=== PATIENT | male | born 1945 | race Two or more races ===

== ENCOUNTER 2024-05-28 19:21 | Inpatient (IN) | payer MEDICARE, OTHER ==
[~2024-05-28] VITALS: Ht 182.9 cm; Wt 79.4 kg
[2024-05-28] MEDS: PENICILLIN G BENZATHINE 2.4 MMU/4 ML DISP.SYRIN IM ONE (21:00)
[2024-05-28] MEDS: IV NORMAL SALINE 1000 ML BAG IV ONE (21:00)
[2024-05-28 21:17] LABS: BASOPHILS % (AUTO) 0.2 % (0.0-2.0); HEMOGLOBIN 13.3 g/dL (12.5-16.3); LYMPHOCYTES # (AUTO) 0.6 K/uL (0.8-4.8); LYMPHOCYTES % (AUTO) 5.1 % (20.5-51.5); MEAN CORPUSCULAR HEMOGLOBIN 30.4 uug (23.8-33.4); MEAN CORPUSCULAR HGB CONC 33 g/dL (32.5-36.3); MEAN CORPUSCULAR VOLUME 91.8 fL (73.0-96.2); MONOCYTES % (AUTO) 7.8 % (0.0-11.0); NEUTROPHILS % (AUTO) 86.9 % (38.5-71.5); PLATELET COUNT (AUTO) 117 K/uL (152-348); RED BLOOD CELL COUNT(AUTO) 4.36 MIL/uL (4.06-5.63); WHITE BLOOD COUNT (AUTO) 12.7 K/uL (3.6-10.2)
[2024-05-28 21:24] LABS: DIFFERENTIAL COMMENT 1
[2024-05-28 21:28] LABS: CALCIUM 9.1 mg/dL (8.5-10.1); CARBON DIOXIDE 26 mmol/L (21-32); CHLORIDE 104 mmol/L (98-107); GLUCOSE 193 mg/dL (74-106); POTASSIUM 4.3 mmol/L (3.5-5.1); SODIUM SERUM 141 mmol/L (136-145); UREA NITROGEN, BLOOD 19 mg/dL (7-18)
[2024-05-28 21:34] LABS: ALANINE AMINOTRANSFERASE 31 U/L (16-63); ALBUMIN 3.8 g/dL (3.4-5.0); ALKALINE PHOSPHATASE 73 U/L (50-136); ASPARTATE AMINOTRANSFERASE 18 U/L (15-37); BILIRUBIN,TOTAL 0.9 mg/dL (0.2-1.0); TOTAL PROTEIN, SERUM 7.2 g/dL (6.4-8.2)
[2024-05-28 21:51] LABS: ACETONE, SERUM NEGATIVE (NEGATIVE)
[2024-05-28] MEDS ORDERED: PENICILLIN G BENZATHINE 2.4 MMU/4 ML DISP.SYRIN IM ONE (22:17)
[2024-05-28] MEDS ORDERED: AMIODARONE HCL IV 450 MG in IV DEXTROSE 5% 250 ML IV PRN (22:45)
[2024-05-28] MEDS: AMIODARONE HCL IV 150 MG in IV DEXTROSE 5% 100 ML IV ONE (22:45)
[2024-05-28] MEDS ORDERED: LOSA25TA27 PO (23:06)
[2024-05-28] MEDS ORDERED: ROSU40TA PO (23:06)
[2024-05-28] MEDS ORDERED: METF-495 PO (23:06)
[2024-05-28] MEDS ORDERED: METO50TA7 PO (23:06)
[2024-05-28] MEDS ORDERED: AMLO-212 PO (23:06)
[2024-05-28] MEDS ORDERED: AMIODARONE HCL 150 MG/3 ML VIAL IV ONE (23:15)
[2024-05-29] MEDS ORDERED: NICOTINE 14 MG/24HR PATCH TD PRN (00:45)
[2024-05-29] MEDS ORDERED: ACETAMINOPHEN 325 MG TABLET PO PRN (00:45)
[2024-05-29] MEDS ORDERED: DEXTROSE 50% 50 ML DISP.SYRIN IV PRN (00:45)
[2024-05-29] MEDS ORDERED: MAGNESIUM HYDROXIDE 30 ML LIQUID UDC PO PRN (00:45)
[2024-05-29] MEDS ORDERED: ONDANSETRON 4 MG/2 ML VIAL IV PRN (00:45)
[2024-05-29] MEDS: ASPIRIN 81 MG TAB.CHEW PO ONE (01:00)
[2024-05-29] MEDS: ENOXAPARIN SODIUM 80 MG/0.8 ML DISP.SYRIN SQ ONE (01:00)
[2024-05-29] MEDS ORDERED: ASPIRIN 81 MG TAB.CHEW ONE (03:48)
[2024-05-29] MEDS ORDERED: ENOXAPARIN SODIUM 80 MG/0.8 ML DISP.SYRIN SQ ONE (03:48)
[2024-05-29 06:10] LABS: BASOPHILS % (AUTO) 0.3 % (0.0-2.0); HEMATOCRIT 35.8 % (36.7-47.1); LYMPHOCYTES # (AUTO) 1.5 K/uL (0.8-4.8); LYMPHOCYTES % (AUTO) 13.2 % (20.5-51.5); MEAN CORPUSCULAR HEMOGLOBIN 30.8 uug (23.8-33.4); MEAN CORPUSCULAR HGB CONC 34 g/dL (32.5-36.3); MEAN CORPUSCULAR VOLUME 91.6 fL (73.0-96.2); MONOCYTES # (AUTO) 1.1 K/uL (0.1-1.30); MONOCYTES % (AUTO) 9.8 % (0.0-11.0); NEUTROPHILS % (AUTO) 76.7 % (38.5-71.5); PLATELET COUNT (AUTO) 104 K/uL (152-348); RED BLOOD CELL COUNT(AUTO) 3.91 MIL/uL (4.06-5.63); RED CELL DISTRIBUTION WIDTH 12.7 % (12.1-16.2); WHITE BLOOD COUNT (AUTO) 11.7 K/uL (3.6-10.2)
[2024-05-29 06:16] LABS: DIFFERENTIAL COMMENT 1
[2024-05-29 06:34] LABS: CALCIUM 8.3 mg/dL (8.5-10.1); CARBON DIOXIDE 26 mmol/L (21-32); CHLORIDE 107 mmol/L (98-107); GLUCOSE 159 mg/dL (74-106); MAGNESIUM 1.6 mg/dL (1.8-2.4); PHOSPHOROUS 2.8 mg/dL (2.5-4.9); SODIUM SERUM 142 mmol/L (136-145); UREA NITROGEN, BLOOD 19 mg/dL (7-18)
[2024-05-29 06:46] LABS: THYROID STIMULATING HORMONE 0.232 mIU/mL (0.358-3.740)
[2024-05-29] MEDS: BLOOD SUGAR DIAGNOSTIC 1 EACH STRIP VI SCH (08:14)
[2024-05-29] MEDS ORDERED: Medication Not On Formulary EA (Rosuvastatin Calcium (Crestor) 1 TAB) PO SCH (09:00)
[2024-05-29] MEDS ORDERED: MORPHINE SULFATE 2 MG/1 ML DISP.SYRIN IVP PRN (11:00)
[2024-05-29] MEDS ORDERED: AMLODIPINE 5 MG TABLET ONE (12:19)
[2024-05-29] MEDS ORDERED: PANTOPRAZOLE SODIUM 40 MG VIAL ONE (12:19)
[2024-05-29] MEDS ORDERED: METOPROLOL SUCCINATE XL 50 MG TAB.SR.24H PO ONE (12:19)
[2024-05-29] MEDS: PANTOPRAZOLE SODIUM 40 MG VIAL IV SCH (12:26)
[2024-05-29] MEDS: LOSARTAN POTASSIUM 25 MG TABLET PO SCH (12:32)
[2024-05-29] MEDS: AMLODIPINE 5 MG TABLET PO SCH (12:33)
[2024-05-29] MEDS: METOPROLOL SUCCINATE XL 50 MG TAB.SR.24H PO SCH (12:33)
[2024-05-29] MEDS: VANCOMYCIN IV 1,250 MG in IV DEXTROSE 5% 250 ML IV SCH (13:52)
[2024-05-29] MEDS ORDERED: CEFEPIME HCL 1 G in IV DEXTROSE 5% 50 ML IV SCH (14:00)
[2024-05-29] MEDS ORDERED: INSULIN REGULAR, HUMAN 1000 UNIT/10 ML VIAL ONE (16:59)
[2024-05-29] MEDS: INSULIN REGULAR, HUMAN 1000 UNIT/10 ML VIAL SQ PRN (17:17)
[2024-05-29] MEDS: CEFEPIME HCL 1 G in IV DEXTROSE 5% 50 ML IV SCH (17:40)
[2024-05-29 19:00] VITALS: BP 126/62; TEMP 99.7; O2SAT 97
[2024-05-29] MEDS: ATORVASTATIN 40 MG TABLET PO SCH (21:25)
[2024-05-30] VITALS: BP 133/71; TEMP 99.5; O2SAT 97
[2024-05-30] MEDS ORDERED: AMIODARONE HCL 150 MG/3 ML VIAL IV ONE (02:46)
[2024-05-30] MEDS: AMIODARONE HCL IV 150 MG in IV DEXTROSE 5% 100 ML IV ONE (03:09)
[2024-05-30] MEDS: AMIODARONE HCL IV 450 MG in IV DEXTROSE 5% 250 ML IV PRN (03:35)
[2024-05-30 04:27] VITALS: BP 109/82; TEMP 98.7; O2SAT 97
[2024-05-30 07:32] VITALS: BP 126/81; TEMP 98.3; O2SAT 96
[2024-05-30 07:42] LABS: CALCIUM 8.4 mg/dL (8.5-10.1); CARBON DIOXIDE 26 mmol/L (21-32); CHLORIDE 107 mmol/L (98-107); CREATININE 0.9 mg/dL (0.6-1.3); GLUCOSE 186 mg/dL (74-106); POTASSIUM 3.7 mmol/L (3.5-5.1); SODIUM SERUM 142 mmol/L (136-145); UREA NITROGEN, BLOOD 13 mg/dL (7-18)
[2024-05-30 08:35] LABS: *BILIRUBIN,URIN NEGATIVE (NEGATIVE); *BLOOD, URINE NEGATIVE (NEGATIVE); *CLARITY,URINE CLEAR (CLEAR); *COLOR,URINE YELLOW (YELLOW); *KETONES,URINE 1+ (NEGATIVE); *PROTEIN,URINE NEGATIVE (NEGATIVE); *UROBILINOGEN,URINE 0.2 E.U./dl (NORMAL); LEUKOCYTE ESTERASE ,URINE NEGATIVE (NEGATIVE); NITRITE, URINE NEGATIVE (NEGATIVE); UGLUCOSE NEGATIVE (NEGATIVE)
[2024-05-30 08:45] LABS: BACTERIA,URINE FEW /HPF (NONE SEEN); WBC,URINE 0-3 /HPF (0-3)
[2024-05-30] MEDS ORDERED: METOPROLOL TARTRATE 50 MG TABLET PO SCH (09:30)
[2024-05-30 11:39] VITALS: BP 123/67; TEMP 98.1; O2SAT 97
[2024-05-30 16:52] VITALS: TEMP 98.2
[2024-05-30] MEDS: RIVAROXABAN 10 MG TABLET PO SCH (17:33)
[2024-05-30 19:00] VITALS: BP 101/65; TEMP 98.3; O2SAT 95
[2024-05-30] MEDS: METOPROLOL TARTRATE 50 MG TABLET PO SCH (20:21)
[2024-05-31] VITALS: BP_SYST 131; BP_SYST 143; BP_DIAS 63; BP_DIAS 79; TEMP 98.2; TEMP 98.7; O2SAT 95; O2SAT 97
[2024-05-31 04:00] VITALS: BP 124/65; TEMP 98.6; O2SAT 96
[2024-05-31] MEDS: PANTOPRAZOLE SODIUM 40 MG TABLET.DR PO SCH (06:27)
[2024-05-31 07:41] VITALS: BP 141/68; TEMP 98.4; O2SAT 97
[2024-05-31 11:44] VITALS: BP 96/60; TEMP 98.2; O2SAT 97
[2024-05-31] MEDS: VANCOMYCIN IV 1,250 MG in IV DEXTROSE 5% 250 ML IV SCH (14:19)
[2024-05-31 14:33] VITALS: BP 130/61; TEMP 98.2; O2SAT 97
[2024-05-31] MEDS: AMIODARONE HCL 200 MG TABLET PO ONE (15:56)
[2024-05-31] MEDS ORDERED: METO-358 PO (16:43)
[2024-05-31] MEDS ORDERED: AMIO200T6 PO (16:43)
[2024-05-31] MEDS ORDERED: AMOX-430 PO (16:43)
[2024-05-31] MEDS ORDERED: RIVA10TA PO (16:43)
[2024-05-31] MEDS: AMIODARONE HCL 200 MG TABLET PO SCH (17:31)
[2024-06-08] MEDS ORDERED: AMIODARONE HCL 200 MG TABLET PO SCH (09:00)
== END 2024-05-31 18:15 | disposition home or self-care (01) | DRG 871 ==
LOC: ER 19:21 → TRANSITION 05-29 11:55 → TELE3 05-29 18:10 → TELE-TD3 05-30 02:46 → TELE3 05-31 16:37
PROVIDERS: ATTEND Internal Medicine
DX: A41.9 Sepsis, unspecified organism (principal); I21.A1 Myocardial infarction type 2; I48.0 Paroxysmal atrial fibrillation; K05.10 Chronic gingivitis, plaque induced; I48.91 Unspecified atrial fibrillation; R68.84 Jaw pain; I10 Essential (primary) hypertension; K02.9 Dental caries, unspecified; F17.210 Nicotine dependence, cigarettes, uncomplicated; Z79.84 Long term (current) use of oral hypoglycemic drugs; E11.9 Type 2 diabetes mellitus without complications; D64.9 Anemia, unspecified; R94.6 Abnormal results of thyroid function studies; Z79.899 Other long term (current) drug therapy; E78.00 Pure hypercholesterolemia, unspecified
CPT/HCPCS: 36415; 70450; 70486; 71045; 83735; 84100; 84443; 84481; 84484; 85025; 87040; 93005; 93307; A4606; A4663; G0378; J0282; J0561; J0692; J1650; J1815; J2470; J7040; J7050